=== PATIENT | male | born 1985 | race Caucasian/White ===

== ENCOUNTER 2021-03-31 06:41 | Emergency (ER) | payer OTHER ==
[~2021-03-31] VITALS: Ht 182.9 cm; Wt 74.8 kg
[2021-03-31 07:52] LABS: BASOPHIL 0.5 % (0-2); EOSINOPHIL 0 % (0-5); HCT 46.6 % (42.0-52.0); HGB 16.2 g/dl (13.2-18.0); LYMPHOCYTE 24.9 % (15-48); MCH 29.6 pg (25.0-31.0); MCHC 34.8 g/dL (32.0-36.0); MCV 85.2 fL (78.0-100.0); MONOCYTE 12.5 % (0-12); MPV 10.1 fL (6.0-9.5); NEUTROPHIL 61.9 % (41-80); NRBC 0; PLT 170 K/uL (150-400); RBC 5.47 M/uL (4.70-6.00); RDW 11.9 % (11.5-14.0)
[2021-03-31 07:54] LABS: WBC 4.1 K/uL (4.0-10.5)
[2021-03-31 08:27] LABS: BUN/CREAT RATIO (CALC) 14.3 RATIO; CREATININE 0.77 mg/dL (0.67-1.17); POTASSIUM 3.5 mmol/L (3.5-5.1)
[2021-03-31] MEDS ORDERED: VENTOLIN HFA IN18 GM INH (09:58)
== END 2021-03-31 10:11 | disposition home or self-care (01) ==
LOC: FER 06:41
PROVIDERS: Emergency Medicine
DX: U07.1 COVID-19 (principal); J12.82 Pneumonia due to coronavirus disease 2019
CPT/HCPCS: 36415; 71045; 71275; 80048; 83880; 84484; 85025; 85379; Q9967